=== PATIENT | female | born 2000 | race Hispanic/Latino ===

== ENCOUNTER → 2025-07-26 | Outpatient (CLI) | payer OTHER | END | disposition home or self-care (01) | LOC: LAB 12:43 | DX: N32.0 Bladder-neck obstruction (principal); N91.2 Amenorrhea, unspecified | CPT/HCPCS: 36415; 84702 ==

== ENCOUNTER 2025-08-14 19:50 | Emergency (ER) | payer OTHER ==
[~2025-08-14] VITALS: Ht 144.8 cm; Wt 72.6 kg
[2025-08-14 19:55] VITALS: BP 148/77; PULSE 72; RESP 18; TEMP 97.6; O2SAT 99
[2025-08-14 21:04] LABS: LEUKOCYTE ESTERASE ,URINE NEGATIVE (NEGATIVE); NITRATE,URINE NEGATIVE (NEGATIVE)
[2025-08-14 21:11] LABS: APPEARANCE,URINE CLEAR; UA COLOR YELLOW
[2025-08-14 21:13] LABS: BASOPHIL # 0.1 10^3/uL (0.0-0.1); BASOPHIL % 0.5 % (0.1-1.2); EOSINOPHIL # 0.1 10^3/uL (0.0-0.2); EOSINOPHIL % 0.5 % (0.0-5.0); HEMATOCRIT(ML) 37.4 % (36.0-46.0); IG % 0.20 % (0.00-0.50); LYMPHOCYTES # 3.34 10^3/uL1 (1.0-4.8); LYMPHOCYTES % 26.2 % (24.0-44.0); MEAN CORP HGB 28.5 pg (26-34); MEAN CORP HGB CONCENTRATION 32.4 g/dL (33-36.5); MEAN CORP VOLUME 88.0 fL (78-100); MONOCYTES # 0.6 10^3/uL (0.3-0.8); MONOCYTES % 4.9 % (5.0-12.0); NEUTROPHIL # 8.6 10^3/uL (1.8-7.7); NEUTROPHILS % 67.7 % (41.0-85.0); RED BLOOD CELL 4.25 10^6/uL (4.00-5.20); RED CELL DISTRIBUTION WIDTH 12.9 % (11.5-14.5); WHITE BLOOD CELL 12.8 10^3/uL (4.5-11.0)
[2025-08-14 21:20] LABS: CREATININE SERUM 0.39 mg/dL (0.59-1.40); EST GFR, NON-AA 197.1 (>/=60)
[2025-08-14] MEDS ORDERED: TORADOL ONE (21:23)
[2025-08-14] MEDS: TORADOL IM STA (21:27)
[2025-08-14 21:33] LABS: YEAST,URINE RARE (NONE SEEN)
[2025-08-14 22:20] VITALS: BP 120/74; PULSE 76; RESP 18; TEMP 97.6; O2SAT 98
[2025-08-14 22:57] VITALS: BP 120/77; PULSE 72; RESP 18; O2SAT 99
[2025-08-14] MEDS ORDERED: KLOR-CON PO ONE (22:57)
[2025-08-14] MEDS: KLOR-CON PO STA (23:02)
== END 2025-08-14 23:00 | disposition home or self-care (01) ==
LOC: ER 19:50
DX: N83.202 Unspecified ovarian cyst, left side (principal); E87.6 Hypokalemia; Z90.49 Acquired absence of other specified parts of digestive tract
CPT/HCPCS: 99285; 76830; 76856; 96372; 87086; 85025; 82948; 36415; 80048; 81001; 81025; J1885; J3490